=== PATIENT | male | born 1965 | race American Indian/Alaskan Native ===

== ENCOUNTER 2017-12-03 09:36 | Day surgery (SDC) | payer OTHER ==
[~2017-12-03 09:36] MED LIST: ANCEF/STERILE WATER 2 GM/20 ML 2 GM/20 ML SYRINGE IV NR; NACL 0.9% 1000 ML 1,000 ML IV SCH
[2017-12-03 10:32] LABS: Basophils % (Auto) 0.8 % (0.0-1.8); Eosinophils # (Auto) 0.1 K/mm3 (0.0-0.4); Eosinophils % (Auto) 1.5 % (0.0-4.3); Hematocrit 37.8 % (35.5-45.6); Hemoglobin 12.4 gm/dl (11.8-15.2); Lymphocytes # (Auto) 1.4 K/mm3 (1.2-5.4); Lymphocytes % (Auto) 30.8 % (13.4-35.0); Mean Corpuscular HGB Conc 33 % (32-34); Monocytes # (Auto) 0.3 K/mm3 (0.0-0.8); Monocytes % (Auto) 7.2 % (0.0-7.3); Platelet Count 250 K/mm3 (140-440); Red Cell Distribution Width 17.5 % (13.2-15.2)
[2017-12-03 10:37] LABS: Mean Corpuscular Hemoglobin 22 pg (28-32); Mean Corpuscular Volume 67 fl (84-94)
[2017-12-03 10:39] LABS: BUN/Creatinine Ratio 13; Blood Urea Nitrogen 13 mg/dL (9-20); Calcium 9.6 mg/dL (8.4-10.2); Hemolysis Index 13
[2017-12-03] MEDS ORDERED: NACL 0.9% 500 ML 500 ML IV SCH (11:00)
[2017-12-03 11:03] LABS: INR 0.91 (0.87-1.13)
[2017-12-03 11:04] LABS: Partial Thromboplastin Time 31.7 Sec. (24.2-36.6)
[2017-12-03] MEDS ORDERED: HEPARIN/NS 5000 UNIT/500ML(CATH LAB) 1,000 ML IR ONE (11:45)
[2017-12-03] MEDS ORDERED: HEPARIN 10,000 UNITS/10 ML ONE (11:46)
[2017-12-03] MEDS ORDERED: ANCEF/STERILE WATER 2 GM/20 ML 2 GM/20 ML SYRINGE IV ONE (11:46)
[2017-12-03] MEDS ORDERED: XYLOCAINE 2% INFILTRATI ONE (11:46)
[2017-12-03] MEDS: SUBLIMAZE ONE ×3 (12:26→13:03)
[2017-12-03] MEDS: VERSED ONE ×2 (12:26→12:40)
[2017-12-03 14:42] VITALS: BP 133/88
--- NOTE | 2017-12-03 14:44 | Short Stay Summary ---
Short Stay Documentation Date of service: 12/03/17 - History Principal diagnosis: Left knee psuedoaneurysm H&P: obtained from office - Allergies and Medications Current Medications: Allergies No Known Allergies Allergy (Verified 12/03/17 09:52) Home Medications Medication Instructions Recorded Confirmed Last Taken Type HYDROcodone/ACETAMINOPHEN [[place] 1 tab PO Q6HR PRN 12/03/17 12/03/17 Unknown History 5-325 Tablet] Pravastatin Sodium [Pravastatin] 10 mg PO QHS 12/03/17 12/03/17 12/02/17 History 10mg Valsartan/Hydrochlorothiazide 1 tab PO DAILY 12/03/17 12/03/17 12/03/17 History [Valsartan-Hctz 320-25 mg Tab] 1 Active Medications Sodium Chloride (Nacl 0.9% 500 Ml) 500 mls @ 50 mls/hr IV DIRECT KERRI - Brief post op/procedure progress note Date of procedure: 12/03/17 Pre-op diagnosis: Left knee psuedoaneurysm Post-op diagnosis: same Procedure: Arterial embolization of left knee pseudoaneurysm Anesthesia: local Surgeon: BHARAT REED Estimated blood loss: minimal Pathology: none Condition: stable - Disposition Condition at discharge: Good Disposition: DC-01 TO HOME OR SELFCARE Short Stay Discharge Plan Activity: advance as tolerated Weight Bearing Status: Weight Bear as Tolerated Diet: regular Wound: keep clean and dry, per your surgeon's advice Follow up with: YECENIA SHANKAR MD [Primary Care Provider] - 7 Days
--- NOTE | 2017-12-03 14:51 | Operative Report ---
Operative Report Operative Report: EXAM: LEFT LOWER EXTREMITY ANGIOGRAPHY AND EMBOLIZATION CLINICAL INDICATION: LEFT KNEE PSEUDOANEURYSM DATE: 12/03/2017 PROCEDURE: Following an explanation of the risks, benefits and alternatives; written informed consent was obtained. The patient was brought to the angiographic suite and placed in supine position on the examination table. Initial ultrasound evaluation of the right groin demonstrated a patent right common femoral artery. The patient's right groin was prepped and draped in the usual sterile fashion. 1% lidocaine was used for anesthesia. Under ultrasound guidance, the right common femoral artery was cannulated with a 7 cm 21-gauge needle. A 0.018 guidewire was advanced centrally. The needle was removed and a micro-sheath placed. The 0.018 guidewire was exchanged for a 0.035 guidewire and the micro-sheath exchanged for a 5 Prydeinig vascular sheath. A 5 Prydeinig Omni flush catheter was advanced over the guidewire to the distal abdominal aorta. Angiography was performed for anatomic localization a. The bifurcation was then crossed using the Omni flush catheter and 0.035 guidewire. Together the guidewire and catheter were advanced to the distal superficial femoral artery. The guidewire was removed and angiography performed at this point. This demonstrates a widely patent popliteal artery. Lateral middle geniculate artery as tortuosity along the distal aspect of the artery with a large pseudoaneurysm arising from the distal aspect of the left lateral middle geniculate artery. The 5 Prydeinig sheath was exchanged for a 6 Prydeinig 90 cm sheath over the guidewire and the Omni flush catheter exchange first for a 4 Prydeinig vertebral catheter and next for a 5 Prydeinig MPA guide cath. The guide cath was advanced into the popliteal artery just proximal to the geniculate artery of interest. A renegade high flow microcatheter and Fadem guidewire were then used to cannulate the geniculate artery. Together the catheter and guidewire were advanced to the distal geniculate artery just proximal to the pseudoaneurysm. Contrast was injected at multiple locations to document appropriate positioning. The catheter was withdrawn proximally and embolization of the left lateral middle geniculate artery was performed using 3 mm x 12 cm Karol coils. A second 3 mm x 12 cm Karol coils was also deployed in the geniculate artery. Postembolization imaging demonstrated stasis of flow to the pseudoaneurysm. The catheters, guidewires and she's were removed and hemostasis achieved using an Angio-Seal arterial closure device. A sterile dressing was then applied. A compression dressing was then applied to the pseudoaneurysm to decompresses pseudoaneurysm. The patient tolerated the procedure well. There were no immediate post procedure complications Conscious sedation was performed under the guidance of radiologic nursing. Continuous cardiopulmonary monitoring was utilized. IMPRESSION: 1) LLE angiography demonstrating pseudoaneurysm arising from left lateral middle geniculate artery. 2) Arterial embolization of left lateral geniculate artery with coils as described.
== END 2017-12-03 16:00 | disposition home or self-care (01) ==
LOC: CATHLABREC 09:36
PROVIDERS: ATTEND Radiology Diagnostic Radiology
DX: I72.4 Aneurysm of artery of lower extremity (principal); I10 Essential (primary) hypertension; Z79.01 Long term (current) use of anticoagulants
CPT/HCPCS: 36415; 37242; 80048; 85025; 85610; 85730; 99156; 99157; C1760; C1769; C1887; J0690; J1644; J2250; J3010; J7040; Q9967

== ENCOUNTER 2017-12-08 11:23 | Day surgery (SDC) | payer OTHER ==
[2017-12-08] MEDS ORDERED: HEPARIN 10,000 UNITS/10 ML ONE (13:31)
[2017-12-08] MEDS ORDERED: ANCEF/STERILE WATER 2 GM/20 ML 2 GM/20 ML SYRINGE IV ONE (13:31)
[2017-12-08] MEDS ORDERED: XYLOCAINE 2% INFILTRATI ONE (13:31)
[2017-12-08] MEDS ORDERED: HEPARIN/NS 5000 UNIT/500ML(CATH LAB) 1,000 ML IR ONE (13:31)
[2017-12-08] MEDS ORDERED: VERSED ONE (13:35)
[2017-12-08] MEDS ORDERED: SUBLIMAZE ONE (13:35)
[2017-12-08] MEDS: CATHFLO ONE ×2 (14:13→14:31)
[2017-12-08] MEDS ORDERED: CATHFLO ONE ×3 (14:22→14:55)
--- NOTE | 2017-12-08 15:17 | Short Stay Summary ---
Short Stay Documentation Date of service: 12/08/17 - History Principal diagnosis: Left geniculate artery thrombosed pseudoaneurysm H&P: obtained from office - Allergies and Medications Current Medications: Allergies No Known Allergies Allergy (Verified 12/03/17 09:52) Home Medications Medication Instructions Recorded Confirmed Last Taken Type HYDROcodone/APAP 10-325 [[place] 1 each PO Q6HR PRN #30 tablet 12/03/17 12/08/17 12/06/17 Rx 10/325] 1 Pravastatin Sodium [Pravastatin] 10 mg PO QHS 12/03/17 12/08/17 12/08/17 History 10mg Valsartan/Hydrochlorothiazide 1 tab PO DAILY 12/03/17 12/08/17 12/08/17 History [Valsartan-Hctz 320-25 mg Tab] 1 Active Medications Cefazolin Sodium (Ancef/Sterile Water 2 Gm/20 Ml) 2 gm in 20 mls @ 80 mls/hr IV PREOP NR; Protocol Stop: 12/08/17 23:59 Sodium Chloride (Nacl 0.9% 1000 Ml) 1,000 mls @ 42 mls/hr IV DIRECT KERRI Last Admin: 12/08/17 12:41 Dose: 42 mls/hr - Brief post op/procedure progress note Date of procedure: 12/08/17 Pre-op diagnosis: Left geniculate artery thrombosed pseudoaneurysm Post-op diagnosis: same Procedure: Percutaneous thrombectomy Anesthesia: local Surgeon: BHARAT REED Estimated blood loss: none Condition: stable - Disposition Condition at discharge: Good Disposition: DC-01 TO HOME OR SELFCARE Short Stay Discharge Plan Activity: advance as tolerated Weight Bearing Status: Weight Bear as Tolerated Diet: regular Wound: keep clean and dry, per your surgeon's advice Follow up with: YECENIA SHANKAR MD [Primary Care Provider] - 7 Days
--- NOTE | 2017-12-08 15:28 | Operative Report ---
Operative Report Operative Report: EXAM: THROMBOLYSIS OF LEFT GENICULATE ARTERY PSEUDOANEURYSM CLINICAL INDICATION: THROMBOSED LEFT GENICULATE ARTERY PSEUDOANEURYSM WITH MASS EFFECT CAUSING PAIN AND LACK OF MOBILITY DATE: 12/08/2017 PROCEDURE: Following an explanation of the risks, benefits and alternatives; written informed consent was obtained. The patient's reported injury graphics being placed in supine position on the examination table. Initial ultrasound evaluation of the patient's left knee demonstrated a thrombosed left geniculate artery pseudoaneurysm. The patient's left knee was prepped and draped in the usual sterile fashion. 1% lidocaine was used for anesthesia. Under ultrasound guidance, a 7 cm 18-gauge needle was advanced into the pseudoaneurysm. A 0.035 guidewire was advanced through the needle and the needle exchange for a 6 [place] short vascular sheath. The sheath was advanced into the pseudoaneurysm under ultrasound. The sheath was opened and no blood was returned. Gentle injection of contrast into the thrombosed pseudoaneurysm demonstrated no free-flowing blood. A total of 6 mg of tPA was then advanced through the sheath interspersed with aspiration and mechanical thrombectomy using a J-wire. Post thrombectomy imaging demonstrated a nearly completely collapsed pseudoaneurysm. Sheath was removed and 4 x 4's were then used to fabricate a extrinsic compression which was then seated using Carlos wrap to hold compression over the pseudoaneurysm. The patient tolerated the procedure well. There were no immediate post procedure compensations. Conscious sedation was performed under the guidance of radiologic nursing. Continuous cardiopulmonary monitoring was utilized. IMPRESSION: 1) Thrombectomy of left geniculate artery pseudoaneurysm
[2017-12-08 15:35] VITALS: BP 123/75
== END 2017-12-08 16:00 | disposition home or self-care (01) ==
LOC: CATHLABREC 11:23
PROVIDERS: ATTEND Radiology Diagnostic Radiology
DX: I72.4 Aneurysm of artery of lower extremity (principal)
CPT/HCPCS: 37184; C1894; J0690; J1644; J2250; J2997; J3010; J7030